=== PATIENT | female | born 1960 | race African-American/Black ===

== ENCOUNTER → 2017-02-26 | Outpatient (CLI) | payer OTHER ==
[~2017-02-26] MED LIST: ALEVE PM CAPLE1 EACH PO; AMLODIPINE BESYL5 MG PO; ASPIR-TRIN325 MG PO; ASPIRIN325 M1; BACLOFEN20 M1 PO; CEFTIN PO; CELEBREX PO; CIPRO PO; CLARITIN10 M3 PO; DURAGESIC25 MCG EXT; ESTRACE0.5 MG PO; FERROUS SULFATE PO; FLAGYL PO; FLEXERIL10 MG PO; FLONASE16 GM; HCTZ PO; HYDROCHLOROTHIA25 MG PO; HYDROCODON-ACE1 EAC4; HYDROCODON-ACE1 EAC4 PO; HYDROCODON-ACE1 EAC5 PO; LASIX20 MG PO; LEVAQUIN PO; LEVAQUIN750 M1 PO; LORTAB 10-3251 EACH PO; LORTAB 2.5/5001 TAB PO; LORTAB 5/500 TA1 TA1 PO; MENEST1.25 MG PO; METFORMIN HCL500 M1 PO; MOTRIN600 M1 PO; MOTRIN600 MG PO; MUCUS ER600 MG PO; MULTI-VITAMIN1 EAC1 PO; NAPROSYN500 MG PO; NAPROXEN PO; NAPROXEN500 M1; NEURONTIN PO; NEXIUM40 MG/PACK PO; NORVASC PO; PAROXETINE HCL25 MG PO; PAXIL PO; PHENERGAN25 MG PO; PRAVACHOL PO; PRAVASTATIN SOD40 MG PO; PRILOSEC PO; PRILOSEC20 M1 PO; PRILOSEC20 MG PO; PROZAC PO; TOPIRAMATE100 MG PO; VICODIN PO; VITAMIN B-121000 MCG; VITAMIN B12 PO; VITAMIN B12-FO1 EACH PO; WAL-ZYR10 MG PO; ZOFRAN ODT4 MG PO
--- NOTE | ~2017-02-26 | CT2 ---
[facility] A Service of [facility] RADIOLOGY TEXT RESULTS PATIENT: MAHIN RODRIGUEZ LOCATION: [facility] : 58 UNIT #: [id number] AGE: [address]: Cristi Stinson III, MD SEX: F ORDER DR: [id number] [facility] [address] [place], [place] [address] [id number] O MR#: [id number] Acc #: [id number] NAME: MAHIN RODRIGUEZ : 1960 SEX: F STUDY DATE/TIME: 02/26/2017 11:50 UNIT: [facility] ROOM: STUDY DESCRIPTION: CT Abd and Pelv W Cont Attending Physician: Cristi Stinson III, M.D. Referring Physician: Cristi Stinson III, M.D. Ordering Physician: Cristi Stinson III, M.D. Primary Care Physician: Israel Odom M.D. MEDICAL IMAGING REPORT This report is preliminary unless electronic signature is present EXAM CT abdomen and pelvis with contrast DATE 02/26/2017 HISTORY 56-year-old female with abdominal pain after falling on 02/08/2017. Contusions on the left side of the abdomen. History of breast cancer. COMPARISON CT abdomen and pelvis with contrast 11/01/2011. PROCEDURE 5 mm axial images from lung bases to lesser trochanters after intravenous and enteric contrast administration. Sagittal and coronal reformatted images were obtained. This CT exam was performed with one or more of the following radiation dose reduction techniques: automatic exposure control, adjustment of mA and/or kV according to patient size, and iterative reconstruction. FINDINGS Lung bases are free of consolidation. Gastric band device appears appropriately positioned without adjacent inflammatory change. No free air, free fluid or hematoma is seen within the abdomen. Cholecystectomy. The liver, spleen, pancreas, adrenals are normal. Mild bilateral renal cortical scarring. 3 small nonobstructing right renal stones, the dominance in the lower pole measuring 3 mm. New low-density left renal lesion at the lower pole measures 2.2 cm. It is of slightly higher density than is expected for a simple cyst (Hounsfield units 17.37). The appendix is normal. There is a mild colonic stool burden. No STS. [facility] A Service of [facility] RADIOLOGY TEXT RESULTS PATIENT: MAHIN RODRIGUEZ LOCATION: [facility] : 58 UNIT #: [id number] AGE: [address]: Cristi Stinson III, MD SEX: F ORDER DR: evidence of high-grade bowel obstruction. No pathologic adenopathy. Pelvis findings: Calcified uterine fibroid redemonstrated. Urinary bladder and rectum normal. No pelvic free fluid or hematoma. Review of bone windows demonstrates no acute osseous abnormality. Incidental note is made of advanced facet arthropathy at L4-5 bilaterally. Sclerosis of the bilateral SI joints consistent with degenerative change. There is grade 1 anterolisthesis L4 upon L5 approximately 6 mm, thought to be related to degenerative change. IMPRESSION 1. No acute findings within the abdomen and pelvis. 2. Very slightly hyperdense 2.2 cm left renal cystic lesion. This may represent a hemorrhagic or proteinaceous cyst, but solid renal lesion cannot be completely excluded. Consider correlation with CT abdomen without and with contrast multiphase renal mass protocol for verification. 3. Mild bilateral renal cortical scarring and small nonobstructing right renal stones. 4. Gastric band device appears appropriately positioned without associated inflammation. 5. Cholecystectomy. 6. Calcified uterine fibroids. 7. Degenerative changes of the lumbar spine with grade 1 anterolisthesis L4 upon L5. No acute osseous abnormality. Dictated by... Char Mosher M.D. THIS IS AN ELECTRONICALLY VERIFIED REPORT Char Mosher M.D. at 02/27/2017 10:29 PM [facility]/moe TD: 02/26/2017 16:10 JOB #: [id number] MEDICAL IMAGING REPORT Page 1 of 1 COPY
[2017-02-26 16:26] LABS: POC - CREATININE 1.08 mg/dL (0.44-1.03)
== END | disposition home or self-care (01) ==
LOC: CCAT 09:39
PROVIDERS: Surgery
DX: R10.33 Periumbilical pain (principal); D25.9 Leiomyoma of uterus, unspecified; M47.896 Other spondylosis, lumbar region; M43.16 Spondylolisthesis, lumbar region; N20.0 Calculus of kidney; N28.89 Other specified disorders of kidney and ureter; N28.1 Cyst of kidney, acquired; Z90.49 Acquired absence of other specified parts of digestive tract
CPT/HCPCS: 74177; 82565; Q9967